=== PATIENT | female | born 1945 | race Caucasian/White ===

== ENCOUNTER → 2016-08-07 | Outpatient (CLI) | payer MEDICARE ==
--- NOTE | 2016-08-09 10:27 | MM ---
Reason for exam: screening (asymptomatic). Last mammogram was performed 1 year and 1 month ago. History: Patient is postmenopausal. Stereotactic core biopsy, January 16, 2002. Cyst aspiration of the left breast. Cyst aspiration of the right breast. Took estrogen for 21 years beginning at age 39. Physical Findings: A clinical breast exam by your physician is recommended on an annual basis and results should be correlated with mammographic findings. MG Screening Mammo w CAD Bilateral CC and MLO view(s) were taken. Prior study comparison: July 09, 2015, bilateral MG screening mammo w CAD. December 08, 2013, bilateral MG screening mammo w CAD. December 05, 2012, CAD bilateral diagnostic mammogram. The breast tissue is heterogeneously dense. This may lower the sensitivity of mammography. Asymmetric density lateral anterior right breast appears more defined from priors. ASSESSMENT: Incomplete: need additional imaging evaluation, BI-RAD 0 RECOMMENDATION: Special view mammogram of the right breast. If lesion persists on supplemental views, image directed ultrasound is recommended. [facility] will attempt to contact patient to return for supplemental views and ultrasound if indicated.
== END | disposition home or self-care (01) ==
LOC: RADMAMWWP 14:53
PROVIDERS: ATTEND Internal Medicine Hematology & Oncology
DX: Z12.31 Encounter for screening mammogram for malignant neoplasm of breast (principal); R92.2 Inconclusive mammogram

== ENCOUNTER → 2016-08-11 | Outpatient (CLI) | payer MEDICARE ==
--- NOTE | 2016-08-15 12:53 | MM ---
Reason for exam: additional evaluation requested from abnormal screening. Last mammogram was performed 1 year and 1 month ago. History: Patient is postmenopausal. Stereotactic core biopsy, January 16, 2002. Cyst aspiration of the left breast. Cyst aspiration of the right breast. Took estrogen for 21 years beginning at age 39. Physical Findings: Nurse did not find any significant physical abnormalities on exam. MG Work Up Mamm w CAD RT CC, MLO, ML, CCRM, and spot compression CC view(s) were taken of the right breast. Prior study comparison: August 07, 2016, bilateral MG screening mammo w CAD. July 09, 2015, bilateral MG screening mammo w CAD. December 08, 2013, bilateral MG screening mammo w CAD. The breast tissue is heterogeneously dense. This may lower the sensitivity of mammography. Asymmetric density anteriorly and laterally does not persist on additional views. Given appearance on screening, a precautionary follow up in 6 months is recommended. These results were verbally communicated with the patient and result sheet given to the patient on 08/11/16. ASSESSMENT: Probably benign, BI-RAD 3 RECOMMENDATION: Follow-up diagnostic mammogram of the right breast in 6 months.
== END | disposition home or self-care (01) ==
LOC: RADMAMWWP 10:59
PROVIDERS: ATTEND Internal Medicine Hematology & Oncology
DX: R92.8 Other abnormal and inconclusive findings on diagnostic imaging of breast (principal)

== ENCOUNTER → 2017-08-17 | Outpatient (CLI) | payer MEDICARE ==
--- NOTE | 2017-08-17 11:22 | MM ---
Reason for exam: additional evaluation requested from abnormal screening. Last mammogram was performed 1 year ago. History: Patient is postmenopausal. Stereotactic core biopsy, January 16, 2002. Cyst aspiration of the left breast. Cyst aspiration of the right breast. Took estrogen for 21 years beginning at age 39. Physical Findings: Nurse did not find any significant physical abnormalities on exam. MG Diagnostic Mammo w CAD ULISES Bilateral CC and MLO view(s) were taken. Prior study comparison: August 11, 2016, right breast MG work up mamm w CAD RT. August 07, 2016, bilateral MG screening mammo w CAD. Finding: There are typically benign vascular, round calcifications in both breasts. There is no discrete abnormality. These results were verbally communicated with the patient and result sheet given to the patient on 08/17/17. ASSESSMENT: Benign, BI-RAD 2 RECOMMENDATION: Routine screening mammogram of both breasts in 1 year.
== END | disposition home or self-care (01) ==
LOC: RADMAMWWP 10:20
PROVIDERS: ATTEND Internal Medicine Hematology & Oncology
DX: R92.8 Other abnormal and inconclusive findings on diagnostic imaging of breast (principal)
CPT/HCPCS: 77066

== ENCOUNTER → 2018-07-23 | Outpatient (CLI) | payer MEDICARE ==
--- NOTE | 2018-07-23 15:12 | BD ---
EXAMINATION TYPE: Axial Bone Density DATE OF EXAM: 07/23/2018 COMPARISON: 01/18/16 CLINICAL HISTORY: Height: 62 IN Weight: 137 LBS RISK FACTORS HISTORY OF: Active: YES Diet low in dairy products/other sources of calcium: YES Postmenopausal woman: AGE 43 Take estrogen and/or progesterone medications: NOT NOW How long: AGE 45-50 MEDICATIONS: Thyroid Medications: YES Which medication: Levothyroxine How Lon YEARS Osteoporosis Medications: NOT NOW Which medication: Boniva How Lon-65 Additional Medications: LEVOTHYROXINE, BLOOD PRESSURE, CHOLESTEROL MED EXAM MEASUREMENTS: Bone mineral densitometry was performed using the Dormir System. Bone mineral density as measured about the Lumbar spine is: ----- L1-L4(G/cm2): 1.188 T Score Values are as follows: ----- L2: -0.4 ----- L3: 0.8 ----- L4: 0.1 ----- L1-L4: 0.1 Bone mineral density has: Increased 9.2% since study of: 01/18/2016 Bone mineral density about the R hip (g/cm2): 0.808 Bone mineral density about the L hip (g/cm2): 0.796 T Score values are as follows: -----R Neck: -1.7 -----L Neck: -1.7 -----R Total: -0.8 -----L Total: -0.8 Bone mineral density has: Increased 0.9% since study of: 01/18/2016 IMPRESSION: Osteopenia (T Score between -2.5 and -1). There is slightly increased risk of fracture and the patient may be considered for treatment. Re-Screen 2-5 years. NOTE: T-SCORE=SD OF THE YOUNG ADULT MEAN.
== END | disposition home or self-care (01) ==
LOC: RADBDWWP 14:02
PROVIDERS: ATTEND Internal Medicine Hematology & Oncology
DX: M85.851 Other specified disorders of bone density and structure, right thigh (principal); M85.852 Other specified disorders of bone density and structure, left thigh; Z78.0 Asymptomatic menopausal state
CPT/HCPCS: 77080

== ENCOUNTER → 2018-08-21 | Outpatient (CLI) | payer MEDICARE ==
--- NOTE | 2018-08-23 14:01 | MM ---
Reason for exam: screening (asymptomatic). Last mammogram was performed 1 year ago. History: Patient is postmenopausal. Stereotactic core biopsy, January 16, 2002. Cyst aspiration of the left breast. Cyst aspiration of the right breast. Took estrogen for 21 years beginning at age 39. Physical Findings: A clinical breast exam by your physician is recommended on an annual basis and results should be correlated with mammographic findings. MG Screening Mammo w CAD Bilateral CC and MLO view(s) were taken. XCCL view(s) were taken of the right breast. Prior study comparison: August 17, 2017, bilateral MG diagnostic mammo w CAD ULISES. August 11, 2016, right breast MG work up mamm w CAD RT. The breast tissue is heterogeneously dense. This may lower the sensitivity of mammography. No significant changes when compared with prior studies. ASSESSMENT: Benign, BI-RAD 2 RECOMMENDATION: Routine screening mammogram of both breasts in 1 year.
== END | disposition home or self-care (01) ==
LOC: RADMAMWWP 11:04
PROVIDERS: ATTEND Internal Medicine Hematology & Oncology
DX: Z12.31 Encounter for screening mammogram for malignant neoplasm of breast (principal)
CPT/HCPCS: 77067

== ENCOUNTER → 2019-08-22 | Outpatient (CLI) | payer MEDICARE ==
--- NOTE | 2019-08-22 08:52 | US ---
EXAMINATION TYPE: US abdomen complete DATE OF EXAM: 08/22/2019 COMPARISON: CT abdomen and pelvis October 06, 2013. CLINICAL HISTORY: R14.0 ABD DISTENTION R10.84 Abdomi nal Pain. EXAM MEASUREMENTS: Liver Length: 12.7 cm Gallbladder Wall: 0.2 cm CBD: 0.4 cm Spleen: 8.2 cm Right Kidney: 8.9 x 3.8 x 5.1 cm Left Kidney: 8.9 x 4.8 x 5.4 cm Pancreas: visualized portions wnl Liver: wnl Gallbladder: No stones seen Evidence for sonographic Tran's sign: Yes CBD: wnl Spleen: wnl Right Kidney: No hydronephrosis or masses seen Left Kidney: No hydronephrosis or masses seen Upper IVC: wnl Abd Aorta: wnl The visualized liver is slightly heterogeneous without mass.. The intrahepatic portion of the IVC an d visualized abdominal aorta true bifurcation are within normal limits. There is no evidence of chol elithiasis. Common bile duct is unremarkable. The visualized portions of the pancreas are homogenou s. The spleen redemonstrated scattered tiny calcific foci presumed product of old granulomatous dise ase. Kidneys are symmetric and free of hydronephrosis. No renal lesions are seen. IMPRESSION: No ascites. Positive sonographic Tran's sign without gallstones of uncertain reason. Ev idence of old granulomatous disease. No acute findings evident.
== END | disposition home or self-care (01) ==
LOC: RADUSWWP 08:08
PROVIDERS: ATTEND Internal Medicine Hematology & Oncology
DX: R10.84 Generalized abdominal pain (principal); Z91.018 Allergy to other foods
CPT/HCPCS: 76700

== ENCOUNTER → 2019-08-26 | Outpatient (CLI) | payer MEDICARE ==
--- NOTE | 2019-08-27 07:27 | CT ---
EXAMINATION TYPE: CT abdomen w con DATE OF EXAM: 08/26/2019 COMPARISON: Ultrasound 08/22/2019, CT scan 10/06/2013 HISTORY: Upper Abdominal pain with nausea. CT DLP: 392.1 mGycm Automated exposure control for dose reduction was used. TECHNIQUE: Helical acquisition of images was performed from the lung bases through the top of iliac crest to include entire abdomen. CONTRAST: Performed with Oral Contrast and with IV Contrast, patient injected with 100 mL of Isovue 300. FINDINGS: LUNG BASES: Calcified granuloma left lung base and there is interlobular septal thickening correlate for chronic interstitial mild lung disease. Correlate for COPD. LIVER/GB: Hepatic tiny granuloma noted. No obvious gallstones. PANCREAS: No significant abnormality is seen. SPLEEN: Splenic granuloma noted. ADRENALS: No significant abnormality is seen. KIDNEYS: No significant abnormality is seen. BOWEL: Retained fecal debris throughout the visualized portion of the colon demonstrated within CT a bdomen. Mild thickening the gastric antrum could related to incomplete distention rather than gastrit is correlate clinically. Small hiatal hernia noted. LYMPH NODES: No significant abnormality is seen. OSSEOUS STRUCTURES: Hypertrophic and degenerative change spine. OTHER: Atherosclerotic change of the aorta with no evidence of aneurysm. IMPRESSION: 1 MILD WALL THICKENING OF THE GASTRIC ANTRUM. THIS COULD BE RELATED TO INCOMPLETE DISTENTION CORRELAT E CLINICALLY TO EXCLUDE MILD GASTRITIS. 2. GRANULOMATOUS DISEASE WITH FINDINGS SUGGESTIVE OF MILD CHRONIC INTERSTITIAL LUNG DISEASE AT THE [facility] BASES ARE 3. SMALL HIATAL HERNIA
== END | disposition home or self-care (01) ==
LOC: RADCTMAIN 15:07
PROVIDERS: ATTEND Internal Medicine Hematology & Oncology
DX: K31.89 Other diseases of stomach and duodenum (principal); D71 Functional disorders of polymorphonuclear neutrophils; K44.9 Diaphragmatic hernia without obstruction or gangrene; Z91.018 Allergy to other foods
CPT/HCPCS: 82565; 84520; 74160; 36415; Q9967

== ENCOUNTER → 2019-09-02 | Outpatient (CLI) | payer MEDICARE | END | disposition home or self-care (01) | LOC: LABWHC1 09:59 | PROVIDERS: ATTEND Surgery | DX: U07.1 COVID-19 (principal) ==

== ENCOUNTER → 2019-09-04 | Day surgery (SDC) | payer MEDICARE ==
[2019-09-03 09:32] VITALS: BMI 24.7
[~2019-09-04] MED LIST: LACTATED RINGERS 1,000 ML IV SCH; LIDOCAINE 1% (10MG/ML) FOR IV START INTRADERMA PRN; PROPOFOL 10 MG/ML 20 ML VIAL IV ONE
[2019-09-04 12:26] VITALS: RESP 16
--- NOTE | 2019-09-04 13:26 | P.OP ---
Date of Procedure: 09/04/19 Preoperative Diagnosis: GERD Postoperative Diagnosis: Gastritis Duodenitis Hiatal hernia Procedure(s) Performed: Esophagogastroduodenoscopy with biopsy Surgeon: Beverly Barragan Pathology: other (Biopsies of duodenum, antrum, esophagus) Condition: stable Disposition: same day Indications for Procedure: 74-year-old female presented with complaints of reflux and bloating. She has never had an upper endoscopy. Upper endoscopy is planned to be performed for further evaluation. She is excellent the risks, benefits and alternatives of the procedure and did provide consent prior to attending the endoscopy suite. Operative Findings: Inflammatory changes of the antrum and duodenum Description of Procedure: The patient was brought to the endoscopy suite. She was then placed in left lateral decubitus position and adequate sedation was achieved using conscious sedation. A bite block was placed and an endoscope was placed in the oropharynx and advanced under endoscopic visualization. The endoscope was advanced through esophagus into the stomach, through the gastric antrum and into the pylorus. The third portion of the duodenum was visualized. The endoscope was then slowly withdrawn. The first portion of the duodenum was noted to have inflammatory changes. Biopsies were taken. The antrum was noted to have inflammatory changes. Biopsies were taken. The gastric body distended normally and the gastric folds appear normal and flattened with insufflation. A retroflexed view of the fundus and GE junction revealed a moderate size hiatal hernia. The esophagus appeared endoscopically normal. Biopsies were taken. Excess air was removed and the scope was withdrawn and the procedure was completed.
[2019-09-04 13:42] VITALS: BP 162/88; PULSE 85
== END | disposition home or self-care (01) ==
LOC: ORWHC2ENDO 11:54
PROVIDERS: ATTEND Surgery
DX: K21.0 Gastro-esophageal reflux disease with esophagitis (principal); K29.50 Unspecified chronic gastritis without bleeding; K29.80 Duodenitis without bleeding; K44.9 Diaphragmatic hernia without obstruction or gangrene; J84.10 Pulmonary fibrosis, unspecified; K64.9 Unspecified hemorrhoids; I10 Essential (primary) hypertension; E78.00 Pure hypercholesterolemia, unspecified; E07.9 Disorder of thyroid, unspecified; E78.5 Hyperlipidemia, unspecified; Z98.890 Other specified postprocedural states; Z87.891 Personal history of nicotine dependence; Z79.899 Other long term (current) drug therapy; Z79.890 Hormone replacement therapy; Z82.0 Family history of epilepsy and other diseases of the nervous system; Z82.49 Family history of ischemic heart disease and other diseases of the circulatory system
CPT/HCPCS: 88305; 43239; J2704

== ENCOUNTER → 2020-01-19 | Outpatient (CLI) | payer MEDICARE ==
--- NOTE | 2020-01-21 10:43 | MM ---
Reason for exam: screening (asymptomatic). Last mammogram was performed 1 year and 5 months ago. History: Patient is postmenopausal. Stereotactic core biopsy, January 16, 2002. Cyst aspiration of the left breast. Cyst aspiration of the right breast. Took estrogen for 21 years beginning at age 39. Physical Findings: A clinical breast exam by your physician is recommended on an annual basis and results should be correlated with mammographic findings. MG 3D Screening Mammo W/Cad Bilateral CC and MLO view(s) were taken. Prior study comparison: August 21, 2018, bilateral MG screening mammo w CAD. August 17, 2017, bilateral MG diagnostic mammo w CAD ULISES. The breast tissue is heterogeneously dense. This may lower the sensitivity of mammography. Benign appearing bilateral calcifications. No significant changes when compared with prior studies. ASSESSMENT: Benign, BI-RAD 2 RECOMMENDATION: Routine screening mammogram of both breasts in 1 year.
== END | disposition home or self-care (01) ==
LOC: RADMAMWWP 07:15
PROVIDERS: ATTEND Internal Medicine Hematology & Oncology
DX: Z12.31 Encounter for screening mammogram for malignant neoplasm of breast (principal)
CPT/HCPCS: 77063; 77067

== ENCOUNTER 2020-01-22 10:13 | Day surgery (SDC) | payer MEDICARE ==
[2020-01-20 14:42] VITALS: BMI 23.9
[~2020-01-22 10:13] MED LIST changes: -PROPOFOL 10 MG/ML 20 ML VIAL IV ONE
[2020-01-22] MEDS ORDERED: LACTATED RINGERS 1,000 ML IV ONE (11:05)
[2020-01-22 11:11] VITALS: RESP 16; TEMP 96.8
[2020-01-22] MEDS ORDERED: PROPOFOL 10 MG/ML 20 ML VIAL IV ONE (11:23)
[2020-01-22] MEDS ORDERED: GLYCOPYRROLATE 0.2 MG/ML 2 ML VIAL ONE (11:23)
[2020-01-22] MEDS ORDERED: fentaNYL (PF) 50 MCG/ML 2 ML AMP ONE (11:23)
[2020-01-22] MEDS ORDERED: MIDAZOLAM 2 MG/2 ML VIAL ONE (11:23)
[2020-01-22] MEDS ORDERED: LIDOCAINE 1% INJ 10MG/ML (20 ML MDV) ONE (11:23)
--- NOTE | 2020-01-22 12:09 | P.PCN ---
Date of Procedure: 01/22/20 Description of Procedure: BRIEF HISTORY: Patient is a 74-year-old female presenting to the hospital for outpatient colonoscopy for evaluation of right upper quadrant abdominal pain and screening for malignant neoplasm of the colon. Patient reports last colonoscopy 15 years ago. She reports significant abdominal pain and distention. PROCEDURE PERFORMED: Colonoscopy with polypectomy. PREOPERATIVE DIAGNOSIS: Right upper quadrant abdominal pain, abdominal pain, screening for malignant neoplasm of the colon, last colonoscopy 15 years ago. ESTIMATED BLOOD LOSS: Minimal. IV sedation per Anesthesia. PROCEDURE: After informed consent was obtained, the patient, was brought into the endoscopy unit. IV sedation was administered by Anesthesia under continuous monitoring. Digital rectal examination was normal. Initially the Olympus CF-190 flexible video colonoscope was then inserted in the rectum, gradually advanced into the cecum without any difficulty. Careful examination was performed as the scope was gradually being withdrawn. Ileocecal valve and the appendiceal orifice were visualized and appeared normal. Prep was excellent. Mucosa of the cecum, ascending colon, transverse colon, descending colon, sigmoid colon, and rectum appeared normal. 2 diminutive polyps measuring 2 and 3 mm in size removed from the transverse colon with cold snare polypectomy. 2 diminutive polyps measuring 3 mm in size removed from the sigmoid colon with cold snare polypectomy. I nternal hemorrhoids noted. Retroflexion was performed in the rectum and no lesions were seen. The patient tolerated the procedure well. IMPRESSION: 4 diminutive polyps removed with cold snare, 2 from the transverse colon and 2 from the sigmoid colon. Internal hemorrhoids. RECOMMENDATIONS: Findings of this examination were discussed with the patient and her . Okay to resume diet. Okay to resume medications. Await pathology from polypectomies. It would recommend repeat colonoscopy in 5 years for colon polyps pending pathology from polypectomies. Patient has been informed that the patient should try a FODMAP diet to help with symptoms of abdominal bloating and gas.
[2020-01-22 12:44] VITALS: BP 160/91; PULSE 75
== END 2020-01-22 13:15 | disposition home or self-care (01) ==
LOC: ORWHC2ENDO 10:13
PROVIDERS: ATTEND Internal Medicine
DX: K63.5 Polyp of colon (principal); K64.8 Other hemorrhoids; R10.11 Right upper quadrant pain; R14.0 Abdominal distension (gaseous); I10 Essential (primary) hypertension; E78.5 Hyperlipidemia, unspecified; E07.9 Disorder of thyroid, unspecified; F32.9 Major depressive disorder, single episode, unspecified; K21.9 Gastro-esophageal reflux disease without esophagitis; Z87.891 Personal history of nicotine dependence; Z79.899 Other long term (current) drug therapy; Z79.890 Hormone replacement therapy; Z98.890 Other specified postprocedural states; Z87.19 Personal history of other diseases of the digestive system
CPT/HCPCS: 88305; 45385; J2250; J2001; J3010; J2704

== ENCOUNTER → 2020-08-05 | Outpatient (CLI) | payer MEDICARE ==
--- NOTE | 2020-08-05 15:43 | CT ---
EXAMINATION TYPE: CT abdomen pelvis w con DATE OF EXAM: 08/05/2020 COMPARISON: 08/26/2019 HISTORY: Lower abdominal pain and distention. CT DLP: 1014 mGycm CONTRAST: CT scan of the abdomen and pelvis is performed with Oral Contrast and with IV Contrast, patient injec cedric with 80ml mL of Isovue 300. FINDINGS: LUNG BASES-: No visible nodule. No infiltrate. LIVER/GB: No calcified gallstones. No space occupying hepatic lesion. Biliary tree is of normal ca liber. PANCREAS: No inflammation. No distinct mass. SPLEEN: No splenic enlargement. No lesion seen. Calcified granulomas of the spleen. ADRENALS: No nodule. No thickening. KIDNEYS/BLADDER: No hydronephrosis. No nephrolithiasis. No distinct renal mass. Urinary bladder g rossly unremarkable. BOWEL: Normal appendix. There is distention of the stomach wall thickening at the pylorus. Consider d irect visualization or upper GI. Normal bowel caliber. No inflammation. GENITAL ORGANS: No gross abnormality. LYMPH NODES: No greater than 1cm abdominal or pelvic lymph nodes are appreciated. AORTA: No significant abnormality. OSSEOUS STRUCTURES: No significant abnormality is seen. OTHER: No significant additional abnormality is seen. IMPRESSION: 1. There is distention of the stomach wall thickening at the pylorus. Consider direct visualization o r upper GI.
== END | disposition home or self-care (01) ==
LOC: RADCTMAIN 13:27
PROVIDERS: ATTEND Internal Medicine Hematology & Oncology
DX: R14.0 Abdominal distension (gaseous) (principal)
CPT/HCPCS: 82565; 84520; 74177; 36415; Q9967

== ENCOUNTER → 2020-09-03 | Outpatient (CLI) | payer MEDICARE ==
--- NOTE | 2020-09-04 08:20 | MR ---
EXAMINATION TYPE: MR MRCP DATE OF EXAM: 09/03/2020 COMPARISON: CT abdomen and pelvis August 05, 2020 and older CTs 2019 and 2013. Ultrasound abdomen August HISTORY: Extreme Pain and bloating for 3 weeks. Pyloric stenosis. Standard multiplanar, multisequence MRI departmental protocol Multiplanar, multisequence images of the abdomen were acquired. Diffusion weighted imaging was perfor med. Thin and thick slice MRCP imaging was performed on MRI scanner. FINDINGS: Liver/gallbladder/pancreas/biliary system: No intraluminal gallstones. Liver remains normal in size w ithout solid or cystic mass. Pancreas also remains normal in size without solid or cystic mass. MRCP imaging shows common bile duct measured up to 7 mm which is upper limits of normal for patient of thi s age. No suspicious intrahepatic or extrahepatic biliary dilatation. Gradual tapering towards the du odenal ampulla is identified. Pancreatic duct not well seen due to no significant dilatation. Other: Spleen and both adrenal glands appear within normal limits. No concerning renal mass or hydron ephrosis. Lung bases grossly clear. No suspicious small or large bowel dilatation. Stomach less well- distended on current study makes evaluation suboptimal. No intra-abdominal ascites or greater than 1 cm abdominal adenopathy. Slight scoliotic curvature on coronal images with multilevel spurring is red emonstrated. IMPRESSION: No biliary or pancreatic ductal dilatation.
== END | disposition home or self-care (01) ==
LOC: RADMRIMAIN 11:04
PROVIDERS: ATTEND Internal Medicine Hematology & Oncology
DX: K31.1 Adult hypertrophic pyloric stenosis (principal)
CPT/HCPCS: 74181

== ENCOUNTER 2020-09-14 10:07 | Day surgery (SDC) | payer MEDICARE ==
[2020-09-09 15:03] VITALS: BMI 24.7
[~2020-09-14 10:07] MED LIST changes: -LIDOCAINE 1% (10MG/ML) FOR IV START INTRADERMA PRN
[2020-09-14 10:45] VITALS: RESP 16; TEMP 98.4
[2020-09-14] MEDS ORDERED: PROPOFOL 10 MG/ML 20 ML VIAL IV ONE (11:07)
[2020-09-14] MEDS ORDERED: LIDOCAINE 1% INJ 10MG/ML (20 ML MDV) ONE (11:07)
--- NOTE | 2020-09-14 11:08 | P.GSHP ---
History of Present Illness H&P Date: 09/14/20 Chief Complaint: Abdominal pain Abdominal pain patient here today for upper endoscopy. Had a recent CAT scan showing gastric wall thickening. Patient with history of chronic abdominal pain both upper abdomen and lower abdomen. She had a recent MRCP which was normal. Past Medical History Past Medical History: GERD/Reflux, Hyperlipidemia, Hypertension, Thyroid Disorder Additional Past Medical History / Comment(s): having extreme stomach bloating History of Any Multi-Drug Resistant Organisms: None Reported Additional Past Surgical History / Comment(s): COLONOSCOPIES, HEMORRHOIDECTOMY,. EGD Past Anesthesia/Blood Transfusion Reactions: No Reported Reaction Smoking Status: Former smoker - Past Family History Mother Family Medical History: No Reported History Medications and Allergies Home Medications Medication Instructions Recorded Confirmed Type Levothyroxine Sodium [Synthroid] 100 mcg PO QAM 10/16/13 09/09/20 History Lansoprazole [Prevacid] 30 mg PO DAILY 10/17/13 09/14/20 History DULoxetine HCL [Cymbalta] 20 mg PO DAILY 09/03/19 09/14/20 History Rosuvastatin Calcium [Crestor] 5 mg PO DAILY 09/03/19 09/09/20 History Zolpidem [Ambien] 10 mg PO HS PRN 09/03/19 09/09/20 History lisinopriL [Zestril] 20 mg PO QAM 09/03/19 09/09/20 History Allergies Allergy/AdvReac Type Severity Reaction Status Date / Time No Known Allergies Allergy Verified 09/09/20 14:58 Surgical - Exam Vital Signs Temp Pulse Resp BP Pulse Ox 98.4 F 68 16 179/89 95 09/14/20 10:43 09/14/20 10:43 09/14/20 10:43 09/14/20 10:43 09/14/20 10:43 Physical exam: General: Well-developed, well-nourished HEENT: Normocephalic, sclerae nonicteric Abdomen: Nontender, nondistended Extremities: No edema Neuro: Alert and oriented Assessment and Plan (1) Abdominal pain Narrative/Plan: Will proceed with upper endoscopy Current Visit: No Status: Acute Code(s): R10.9 - UNSPECIFIED ABDOMINAL PAIN SNOMED Code(s): 39311435
--- NOTE | 2020-09-14 11:19 | P.PCN ---
Date of Procedure: 09/14/20 Procedure(s) Performed: Preoperative Dx: GERD, presurgical Postoperative Dx: Gastritis, small gastric polyps, hiatal hernia Procedure: EGD with Bx Anesthesia: Sedation Endoscopist: Dr. Seivlla Specimens: Antrum, body, polyp Endoscopic Procedure: The patient was on the endoscopy table in the left decubitus position. The Olympus gastroscope was inserted into the oropharynx and passed under direct visualization to the region of the third portion of the duodenum. From that point the scope was slowly withdrawn inspecting all surfaces carefully. There were no neoplastic inflammatory or polypoid lesions throughout the duodenum. The pylorus was widely patent. The stomach was carefully inspected. There was diffuse gastritis present. A biopsy of the antrum took place to rule out H. pylori. Biopsies of the body of the stomach to place as well. The largest polyp measuring 6 mm was removed using the cold biopsy forceps. Retroflexion revealed a small hiatal hernia. The esophagus was then carefully examined. There were no neoplastic inflammatory or polypoid lesions throughout the visualized esophagus. The patient was then taken to the recovery room in stable condition per anesthesia guidelines. Recommendations: Await biopsy results.
[2020-09-14 11:26] VITALS: BP 162/94; PULSE 81
== END 2020-09-14 12:10 | disposition home or self-care (01) ==
LOC: ORWHC2ENDO 10:07
PROVIDERS: ATTEND Surgery
DX: K29.50 Unspecified chronic gastritis without bleeding (principal); K44.9 Diaphragmatic hernia without obstruction or gangrene; K21.9 Gastro-esophageal reflux disease without esophagitis; K31.7 Polyp of stomach and duodenum; I10 Essential (primary) hypertension; E78.5 Hyperlipidemia, unspecified; E07.9 Disorder of thyroid, unspecified; J84.10 Pulmonary fibrosis, unspecified; F32.9 Major depressive disorder, single episode, unspecified; K64.9 Unspecified hemorrhoids; Z98.890 Other specified postprocedural states; Z87.891 Personal history of nicotine dependence; Z79.890 Hormone replacement therapy; Z79.899 Other long term (current) drug therapy
CPT/HCPCS: 88305; 43239; J2001; J2704

== ENCOUNTER → 2021-07-14 | Outpatient (CLI) | payer MEDICARE ==
--- NOTE | 2021-07-15 11:56 | MM ---
Reason for exam: screening (asymptomatic). Last mammogram was performed 1 year and 6 months ago. History: Patient is postmenopausal. Stereotactic core biopsy, January 16, 2002. Cyst aspiration of the left breast. Cyst aspiration of the right breast. Took estrogen for 21 years beginning at age 39. Physical Findings: A clinical breast exam by your physician is recommended on an annual basis and results should be correlated with mammographic findings. MG 3D Screening Mammo W/Cad Bilateral CC and MLO view(s) were taken. Prior study comparison: January 19, 2020, bilateral MG 3d screening mammo w/cad. August 21, 2018, bilateral MG screening mammo w CAD. The breast tissue is extremely dense which could obscure a lesion on mammography. There is no discrete abnormality. ASSESSMENT: Negative, BI-RAD 1 RECOMMENDATION: Routine screening mammogram of both breasts in 1 year.
== END | disposition home or self-care (01) ==
LOC: RADMAMWWP 12:59
PROVIDERS: ATTEND Internal Medicine Hematology & Oncology
DX: Z12.31 Encounter for screening mammogram for malignant neoplasm of breast (principal); Z78.0 Asymptomatic menopausal state
CPT/HCPCS: 77063; 77067

== ENCOUNTER → 2021-10-17 | Outpatient (CLI) | payer MEDICARE ==
--- NOTE | 2021-10-17 17:22 | NM ---
EXAMINATION TYPE: NM gastric emptying static DATE OF EXAM: 10/17/2021 COMPARISON: NONE HISTORY: 76-year-old female R14.0, generalized bloating. TECHNIQUE: Following administration of 2.1 mCi Tc 99m Sulfur Colloid with 4 OUNCES EGG WHITES, 2 PIEC ES OF TOAST W/BUTTER & JAM AND 4 OUNCES WATER, projection images of the abdomen were obtained 10 ariadna nancy post ingestion. FINDINGS: Patient Emptying Values 1 Hour 38 % (70-10%) 2 Hours 66 % (> 40%) 3 Hours 95 % (> 70%) 4 Hours 99 % (> 90%) Gastroesophagel reflux: None T 1/2 is calculated at 81 minutes (normal range for solid phase 60-105 minutes). IMPRESSION: Normal gastric emptying values. The measurements argue against gastroparesis
== END | disposition home or self-care (01) ==
LOC: RADNMMAIN 06:33
PROVIDERS: ATTEND Internal Medicine Gastroenterology
DX: R14.0 Abdominal distension (gaseous) (principal); R14.3 Flatulence
CPT/HCPCS: 78264; A9541

== ENCOUNTER → 2022-08-28 | Outpatient (CLI) | payer MEDICARE ==
--- NOTE | 2022-08-29 17:13 | MM ---
Reason for Exam: Screening (asymptomatic). Last mammogram was performed 1 year(s) and 2 month(s) ago. Patient History: Menarche at age 9. First Full-Term at age 16. Postmenopausal. Estrogen for 21 years from age 39 until age 60. Cyst Aspiration on the Right side. Cyst Aspiration on the Left side. 01/16/2002, Stereotactic Core Biopsy. Mother had ovarian cancer, age 52. Risk Values: Dorcas 5 year model risk: 1.6%. NCI Lifetime model risk: 2.6%. Prior Study Comparison: 08/21/2018 Bilateral Screening Mammogram, [facility]. 01/19/2020 Bilateral Screening Mammogram, [facility]. 07/14/2021 Bilateral Screening Mammogram, [facility]. Tissue Density: The breast tissue is heterogeneously dense. This may lower the sensitivity of mammography. Findings: Analyzed By CAD. There is no suspicious group of microcalcifications or new suspicious mass in either breast. Overall Assessment: Benign, BI-RAD 2 Management: Screening Mammogram of both breasts in 1 year. . Patient should continue monthly self-breast exams. A clinical breast exam by your physician is recommended on an annual basis. This exam should not preclude additional follow-up of suspicious palpable abnormalities. Note on Dorcas scores and lifetime risk: 1. A Dorcas score greater than 3% is considered moderate risk. If this is the case, consider specialist referral to assess eligibility for a risk reducing agent. 2. If overall lifetime risk for the development of breast cancer is 20% or higher, the patient may qualify for future screening with alternating mammogram and breast MRI. Electronically signed and approved by: Julián Alvarez M.D. Radiologist
== END | disposition home or self-care (01) ==
LOC: RADMAMWWP 14:42
PROVIDERS: ATTEND Internal Medicine Hematology & Oncology
DX: Z12.31 Encounter for screening mammogram for malignant neoplasm of breast (principal); I10 Essential (primary) hypertension; E78.5 Hyperlipidemia, unspecified; M81.8 Other osteoporosis without current pathological fracture; R55 Syncope and collapse; Z78.0 Asymptomatic menopausal state; Z80.41 Family history of malignant neoplasm of ovary
CPT/HCPCS: 77063; 77067

== ENCOUNTER → 2023-08-30 | Outpatient (CLI) | payer MEDICARE ==
--- NOTE | 2023-09-03 23:03 | MM ---
Reason for Exam: Screening (asymptomatic). Last screening mammogram was performed 12 month(s) ago. Patient History: Menarche at age 9. First Full-Term at age 16. Postmenopausal. Estrogen for 21 years from age 39 until age 60. Cyst Aspiration on the Right side. Cyst Aspiration on the Left side. 01/16/2002, Stereotactic Core Biopsy. Mother had ovarian cancer, age 52. Risk Values: Dorcas 5 year model risk: 1.5%. NCI Lifetime model risk: 2.4%. Prior Study Comparison: 01/19/2020 Bilateral Screening Mammogram, [facility]. 07/14/2021 Bilateral Screening Mammogram, [facility]. 08/28/2022 Bilateral MG 3D screening mammo w/cad, [facility]. Tissue Density: The breasts are heterogeneously dense, which may obscure small masses. Findings: Analyzed By CAD. The pattern is symmetrical. Benign vascular calcifications present bilaterally. No suspicious groups of microcalcifications, spiculated or lobular masses, architectural distortion or other secondary signs of malignancy are mammographically apparent. Overall Assessment: Benign, BI-RAD 2 Management: Screening Mammogram of both breasts in 1 year. A negative mammogram report should not preclude additional follow up of suspicious palpable abnormalities. Patient should continue monthly self breast exam. A clinical breast exam by your physician is recommended on an annual basis and results should be correlated with mammographic findings. Note on Dorcas scores and lifetime risk: 1. A Dorcas score greater than 3% is considered moderate risk. If this is the case, consider specialist referral to assess eligibility for a risk reducing agent. 2. If overall lifetime risk for the development of breast cancer is 20% or higher, the patient may qualify for future screening with alternating mammogram and breast MRI. Electronically signed and approved by: Kike Felder D.O. Radiologis
== END | disposition home or self-care (01) ==
LOC: RADMAMWWP 13:56
PROVIDERS: ATTEND Internal Medicine Hematology & Oncology
DX: Z12.31 Encounter for screening mammogram for malignant neoplasm of breast (principal); Z78.0 Asymptomatic menopausal state
CPT/HCPCS: 77063; 77067

== ENCOUNTER 2024-01-18 09:04 | Emergency (ER) | payer MEDICARE ==
[2024-01-18 09:16] VITALS: RESP 17; TEMP 97.5
--- NOTE | 2024-01-18 09:30 | ED ---
GI Bleed HPI - General Chief complaint: GI Bleed Stated complaint: GI bleed Time Seen by Provider: 01/18/24 09:09 Source: patient, EMS, RN notes reviewed Mode of arrival: EMS Limitations: no limitations - History of Present Illness Initial comments: This is an 78-year-old female who presents to the emergency department for rectal bleeding and abdominal pain. Patient states that yesterday she started to notice bright red rectal bleeding. States that this was not mixed in with stool, it was only blood. This is associated with pain in the left lower quadrant. Not taking any blood thinners. Believes that she has a history of diverticulosis, but has never experienced rectal bleeding. Reports associated nausea but no vomiting. The abdominal pain got worse throughout the night and this morning she started feeling very weak and dizzy, prompting her to call EMS. - Related Data Home Medications Medication Instructions Recorded Confirmed Levothyroxine Sodium [Synthroid] 100 mcg PO QAM 10/16/13 09/09/20 Lansoprazole [Prevacid] 30 mg PO DAILY 10/17/13 09/14/20 DULoxetine HCL [Cymbalta] 20 mg PO DAILY 09/03/19 09/14/20 Rosuvastatin Calcium [Crestor] 5 mg PO DAILY 09/03/19 09/09/20 Zolpidem [Ambien] 10 mg PO HS PRN 09/03/19 09/09/20 lisinopriL [Zestril] 20 mg PO QAM 09/03/19 09/09/20 Previous Rx's Medication Instructions Recorded Amoxic-Pot Clav 875-125Mg 1 tab PO Q12HR 10 Days #20 tab 01/18/24 [Augmentin 875-125] Amoxic-Pot Clav 875-125Mg 1 tab PO Q12HR 10 Days #20 tab 01/18/24 [Augmentin 875-125] Ondansetron Odt [Zofran Odt] 4 mg PO Q8HR PRN #20 tab 01/18/24 Ondansetron Odt [Zofran Odt] 4 mg PO Q8HR PRN #20 tab 01/18/24 Allergies Allergy/AdvReac Type Severity Reaction Status Date / Time No Known Allergies Allergy Verified 01/18/24 09:12 Review of Systems ROS Statement: Those systems with pertinent positive or pertinent negative responses have been documented in the HPI. ROS Other: All systems not noted in ROS Statement are negative. Past Medical History Past Medical History: Hyperlipidemia, Hypertension, Thyroid Disorder Additional Past Medical History / Comment(s): CHRONIC BLOATING ISSUES FOR YEARS, POSSIBLE GLUTEN PROBLEM-NEVER BEEN TESTED FOR CELIAC History of Any Multi-Drug Resistant Organisms: None Reported Additional Past Surgical History / Comment(s): COLONOSCOPIES. HEMORRHOIDECTOMY. EGD Past Anesthesia/Blood Transfusion Reactions: No Reported Reaction Past Psychological History: No Psychological Hx Reported Smoking Status: Former smoker - Past Family History Mother Family Medical History: No Reported History General Exam Limitations: no limitations General appearance: alert, in no apparent distress Head exam: Present: atraumatic, normocephalic, normal inspection Respiratory exam: Present: normal lung sounds bilaterally. Absent: respiratory distress, wheezes, rales, rhonchi, stridor Cardiovascular Exam: Present: regular rate, normal rhythm, normal heart sounds. Absent: systolic murmur, diastolic murmur, rubs, gallop, clicks GI/Abdominal exam: Present: soft, tenderness (LLQ), normal bowel sounds. Absent: distended Neurological exam: Present: alert, oriented X3, CN II-XII intact Psychiatric exam: Present: normal affect, normal mood Skin exam: Present: warm, dry, intact, normal color. Absent: rash Course Vital Signs 01/18/24 01/18/24 09:06 13:06 Temperature 97.5 F L Pulse Rate 84 74 Respiratory 17 17 Rate Blood Pressure 164/83 155/76 O2 Sat by Pulse 97 97 Oximetry Medical Decision Making - Medical Decision Making This is an 78 year old female who presents to the emergency department for abdominal pain and rectal bleeding. Was pt. sent in by a medical professional or institution? @ -No Did you speak to anyone other than the patient for history? @ -No Did you review nursing and triage notes? @ -Yes, and I agree, it is accurate with regards to the patient's symptoms. Were old charts reviewed? @ -No Differential Diagnosis? @ -Differential GI Bleed: Esophageal varices, aortoenteric fistula, Whit-Bernabe, gastritis, peptic ulcer disease, diverticulosis, inflammatory bowel disease, hemorrhoids, fissure, colitis, malignancy, Meckel's diverticulum, this is not meant to be an all- inclusive list. EKG interpreted by me (3pts min.)? @ -Not obtained X-rays interpreted by me (1pt min.)? @ -Not obtained CT interpreted by me (1pt min.)? @ -CTA of the abdomen and pelvis obtained. My interpretation identifies diffuse colonic wall thickening. U/S interpreted by me (1pt. min.)? @ -Not obtained What testing was considered but not performed? (CT, X-rays, U/S, labs)? Why? @ -None What meds were considered but not given? Why? @ -None Did you discuss the management of the patient with other professionals? @ -No Did you reconcile home meds? @ -No Was smoking cessation discussed for >3mins.? @ -No Was critical care preformed (if so, how long)? @ -No Were there social determinants of health that impacted care today? How? (Homelessness, low income, unemployed, alcoholism, drug addiction, transportation, low edu. Level, literacy, decrease access to med. care, halfway, re hab)? @ -No Was there de-escalation of care discussed even if they declined? (Discuss DNR or withdrawal of care, Hospice)? @ -No What co-morbidities impacted this encounter? (DM, HTN, Smoking, COPD, CAD, Cancer, CVA, Hep., AIDS, mental health diagnosis, sleep apnea, morbid obesity)? @ -None Was patient admitted / discharged? @ -Discharged. Lab work demonstrates leukocytosis with a white blood cell count of 11.5. Hemoglobin within normal limits. CTA of the abdomen and pelvis obtained. No active bleeding was identified. She was found to have findings consistent with acute colitis of the descending colon, proximal sigmoid colon, cecum, and ascending colon. Symptoms managed in the emergency department. Patient had no active bleeding and remained hemodynamically stable. Hemoglobin also within normal limits and advised the patient that management can be attempted on an outpatient basis to start. Given the leukocytosis with possibility of infection, prescription for Augmentin was provided. Zofran prescribed for any additional nausea. Advised Tylenol as needed for pain relief as well as bowel rest. Strict return parameters were discussed and she is advised to have close follow-up with her primary care provider. Patient discharged home in stable condition. Case discussed with ED attending Dr. Ashford. Return precautions reviewed in depth, the patient is instructed to return to the emergency department with any new, worsening, or concerning symptoms. Patient verbalized understanding. Undiagnosed new problem with uncertain prognosis? @ -None Drug Therapy requiring intensive monitoring for toxicity (Heparin, Nitro, Insulin, Cardizem)? @ -None Were any procedures done? @ -None Diagnosis/symptom? @ -Colitis, rectal bleeding Acute, or Chronic, or Acute on Chronic? @ -Acute Uncomplicated (without systemic symptoms) or Complicated (systemic symptoms)? @ -Uncomplicated Side effects of treatment? @ -None Exacerbation, Progression, or Severe Exacerbation] @ -Not applicable Poses a threat to life or bodily function? @ -Unlikely - Lab Data Result diagrams: 01/18/24 09:57 01/18/24 09:57 Lab Results 01/18/24 01/18/24 01/18/24 Range/Units 09:40 09:45 09:57 WBC 11.5 H (3.8-10.6) k/uL RBC 4.33 (3.80-5.40) m/uL Hgb 13.6 (11.4-16.0) gm/dL Hct 41.1 (34.0-46.0) % MCV 94.8 (80.0-100.0) fL MCH 31.3 (25.0-35.0) pg MCHC 33.0 (31.0-37.0) g/dL RDW 12.7 (11.5-15.5) % Plt Count 339 (150-450) k/uL MPV 7.2 Neutrophils % 81 % Lymphocytes % 9 % Monocytes % 7 % Eosinophils % 1 % Basophils % 0 % Neutrophils # 9.3 H (1.3-7.7) k/uL Lymphocytes # 1.1 (1.0-4.8) k/uL Monocytes # 0.9 (0-1.0) k/uL Eosinophils # 0.1 (0-0.7) k/uL Basophils # 0.0 (0-0.2) k/uL PT (10.0-12.5) sec INR (<1.2) APTT (22.0-30.0) sec Sodium (137-145) mmol/L Potassium (3.5-5.1) mmol/L Chloride (98-107) mmol/L Carbon Dioxide (22-30) mmol/L Anion Gap mmol/L BUN (7-17) mg/dL Creatinine (0.52-1.04) mg/dL Est GFR (CKD-EPI)AfAm (>60 ml/min/1.73 sqM) Est GFR (CKD-EPI)NonAf (>60 ml/min/1.73 sqM) Glucose (74-99) mg/dL Plasma Lactic Acid Singh (0.7-2.0) mmol/L Calcium (8.4-10.2) mg/dL Magnesium (1.6-2.3) mg/dL Total Bilirubin (0.2-1.3) mg/dL AST (14-36) U/L ALT (4-34) U/L Alkaline Phosphatase (38-126) U/L Total Protein (6.3-8.2) g/dL Albumin (3.5-5.0) g/dL Lipase (23-300) U/L Blood Type O Positive Blood Type Confirm O Positive Blood Type Recheck Bld Type Recheck Status Antibody Screen NEGATIVE Spec Expiration Date 01/18/24 01/18/24 01/18/24 Range/Units 09:57 09:57 09:57 WBC (3.8-10.6) k/uL RBC (3.80-5.40) m/uL Hgb (11.4-16.0) gm/dL Hct (34.0-46.0) % MCV (80.0-100.0) fL MCH (25.0-35.0) pg MCHC (31.0-37.0) g/dL RDW (11.5-15.5) % Plt Count (150-450) k/uL MPV Neutrophils % % Lymphocytes % % Monocytes % % Eosinophils % % Basophils % % Neutrophils # (1.3-7.7) k/uL Lymphocytes # (1.0-4.8) k/uL Monocytes # (0-1.0) k/uL Eosinophils # (0-0.7) k/uL Basophils # (0-0.2) k/uL PT 11.1 (10.0-12.5) sec INR 1.0 (<1.2) APTT 24.0 (22.0-30.0) sec Sodium 137 (137-145) mmol/L Potassium 3.3 L (3.5-5.1) mmol/L Chloride 105 (98-107) mmol/L Carbon Dioxide 26 (22-30) mmol/L Anion Gap 6 mmol/L BUN 21 H (7-17) mg/dL Creatinine 1.01 (0.52-1.04) mg/dL Est GFR (CKD-EPI)AfAm 61 (>60 ml/min/1.73 sqM) Est GFR (CKD-EPI)NonAf 53 (>60 ml/min/1.73 sqM) Glucose 92 (74-99) mg/dL Plasma Lactic Acid Singh 1.4 (0.7-2.0) mmol/L Calcium 9.3 (8.4-10.2) mg/dL Magnesium 1.7 (1.6-2.3) mg/dL Total Bilirubin 0.6 (0.2-1.3) mg/dL AST 20 (14-36) U/L ALT 10 (4-34) U/L Alkaline Phosphatase 75 (38-126) U/L Total Protein 6.1 L (6.3-8.2) g/dL Albumin 3.6 (3.5-5.0) g/dL Lipase 91 (23-300) U/L Blood Type Blood Type Confirm Blood Type Recheck Bld Type Recheck Status Antibody Screen Spec Expiration Date 01/18/24 Range/Units 09:57 WBC (3.8-10.6) k/uL RBC (3.80-5.40) m/uL Hgb (11.4-16.0) gm/dL Hct (34.0-46.0) % MCV (80.0-100.0) fL MCH (25.0-35.0) pg MCHC (31.0-37.0) g/dL RDW (11.5-15.5) % Plt Count (150-450) k/uL MPV Neutrophils % % Lymphocytes % % Monocytes % % Eosinophils % % Basophils % % Neutrophils # (1.3-7.7) k/uL Lymphocytes # (1.0-4.8) k/uL Monocytes # (0-1.0) k/uL Eosinophils # (0-0.7) k/uL Basophils # (0-0.2) k/uL PT (10.0-12.5) sec INR (<1.2) APTT (22.0-30.0) sec Sodium (137-145) mmol/L Potassium (3.5-5.1) mmol/L Chloride (98-107) mmol/L Carbon Dioxide (22-30) mmol/L Anion Gap mmol/L BUN (7-17) mg/dL Creatinine (0.52-1.04) mg/dL Est GFR (CKD-EPI)AfAm (>60 ml/min/1.73 sqM) Est GFR (CKD-EPI)NonAf (>60 ml/min/1.73 sqM) Glucose (74-99) mg/dL Plasma Lactic Acid Singh (0.7-2.0) mmol/L Calcium (8.4-10.2) mg/dL Magnesium (1.6-2.3) mg/dL Total Bilirubin (0.2-1.3) mg/dL AST (14-36) U/L ALT (4-34) U/L Alkaline Phosphatase (38-126) U/L Total Protein (6.3-8.2) g/dL Albumin (3.5-5.0) g/dL Lipase (23-300) U/L Blood Type Blood Type Confirm Blood Type Recheck No Previous Record Bld Type Recheck Status CABO Indicated Antibody Screen Spec Expiration Date 01/21/2024 9326 - Radiology Data Radiology results: report reviewed, image reviewed Disposition Clinical Impression: Colitis, Rectal bleeding Disposition: HOME SELF-CARE Instructions (If sedation given, give patient instructions): Rectal Bleeding (ED), Colitis (ED) Additional Instructions: Return to the emergency department with any new, worsening, or concerning symptoms. Take the antibiotic as prescribed for 10 days. Take the Zofran up to every 8 hours as needed for nausea and vomiting. Follow up with your primary care provider in 1-2 days. Prescriptions: Amoxic-Pot Clav 875-125Mg [Augmentin 875-125] 1 tab PO Q12HR 10 Days #20 tab Amoxic-Pot Clav 875-125Mg [Augmentin 875-125] 1 tab PO Q12HR 10 Days #20 tab Ondansetron Odt [Zofran Odt] 4 mg PO Q8HR PRN #20 tab PRN Reason: Nausea And Vomiting Ondansetron Odt [Zofran Odt] 4 mg PO Q8HR PRN #20 tab PRN Reason: Nausea And Vomiting Is patient prescribed a controlled substance at d/c from ED?: No Referrals: Franc Mays MD [Primary Care Provider] - 1-2 days Time of Disposition: 12:18
[2024-01-18 10:05] LABS: Basophils % (A) 0 %; Eosinophils # (A) 0.1 k/uL (0-0.7); Eosinophils % (A) 1 %; HCT 41.1 % (34.0-46.0); HGB 13.6 gm/dL (11.4-16.0); Lymphocytes # (A) 1.1 k/uL (1.0-4.8); Lymphocytes % (A) 9 %; MCH 31.3 pg (25.0-35.0); MCV 94.8 fL (80.0-100.0); Mean Platelet Volume 7.2; Monocytes # (A) 0.9 k/uL (0-1.0); Monocytes % (A) 7 %; Neutrophils # (A) 9.3 k/uL (1.3-7.7); Neutrophils % (A) 81 %; Platelet Count 339 k/uL (150-450); RBC 4.33 m/uL (3.80-5.40); RDW 12.7 % (11.5-15.5); WBC 11.5 k/uL (3.8-10.6)
[2024-01-18 10:22] LABS: Prothrombin Time 11.1 sec (10.0-12.5)
[2024-01-18 10:41] LABS: ALT 10 U/L (4-34); AST 20 U/L (14-36); African American GFR (CKD) 61 (>60 ml/min/1.73 sqM); Albumin 3.6 g/dL (3.5-5.0); Alkaline Phosphatase 75 U/L (38-126); Anion Gap 6 mmol/L; Blood Urea Nitrogen 21 mg/dL (7-17); Calcium 9.3 mg/dL (8.4-10.2); Carbon Dioxide 26 mmol/L (22-30); Chloride 105 mmol/L (98-107); Glucose 92 mg/dL (74-99); Lipase 91 U/L (23-300); Magnesium 1.7 mg/dL (1.6-2.3); Non-African American GFR(CKD) 53 (>60 ml/min/1.73 sqM); Potassium 3.3 mmol/L (3.5-5.1); Sodium 137 mmol/L (137-145); Total Bilirubin 0.6 mg/dL (0.2-1.3); Total Protein 6.1 g/dL (6.3-8.2)
[2024-01-18] MEDS: SODIUM CHLORIDE 0.9% 500 ML 500 ML IV ONE (11:29)
--- NOTE | 2024-01-18 11:57 | CT ---
CTA abdomen and pelvis with contrast. HISTORY: Lower quadrant pain and rectal bleeding. COMPARISON: CT abdomen and pelvis dated 08/26/2019. Technique: Multiple axial images are obtained through the abdomen and pelvis following the uneventful administration of nonionic IV contrast. The exam was performed according to the department CTA esthela col. FINDINGS: The visualized lung bases are clear. There is a 1 cm calcified granuloma in the left lower lobe. On the precontrast images there is no gallstone or renal calcification. There is no focal mass or organomegaly involving liver, pancreas, spleen or adrenal glands. There is no solid renal mass or hydronephrosis. The caliber of the abdominal aorta is is normal and there is no aneurysm or dissection. There is mild to moderate scattered arteriosclerotic calcifications. The origins of the celiac and mesenteric quynh ban and renal arteries are widely patent. There is no evidence of acute bleeding within the colon. There is moderate diverticulosis without CT evidence of diverticulitis. There is diffuse wall thickening with edema in the descending and proxima l sigmoid colon and within the cecum and ascending colon consistent with acute colitis or ischemic co litis. No bowel obstruction. No free intraperitoneal air or fluid. No pelvic mass, free fluid, abscess or adenopathy. The osseous structures are intact. IMPRESSION: 1. The descending colon, proximal sigmoid colon, cecum and ascending colon wall is edematous consiste nt with acute colitis or ischemic colitis. 2. Moderate scattered arteriosclerotic calcification abdominal aorta without evidence of aneurysm or dissection. 3. No evidence of acute bleed within the colon. [facility], , 01/18/2024 11:54 AM
[2024-01-18] MEDS: POTASSIUM CHLORIDE ER 20 MEQ TAB.ER PO STA (12:47)
[2024-01-18] MEDS: ACETAMINOPHEN TAB 500 MG TAB PO STA (12:48)
[2024-01-18] MEDS: ONDANSETRON 4 MG ODT STARTER PACK 2 TAB BTL PO STA (12:48)
[2024-01-18] MEDS: MORPHINE SULFATE 2 MG/ML SYRINGE IVP STA (12:48)
[2024-01-18] MEDS: ACET/COD 300 MG/30 MG STARTER PACK 6 TAB BTL PO STA (12:48)
[2024-01-18 13:07] VITALS: BP 155/76; PULSE 74
== END 2024-01-18 13:07 | disposition home or self-care (01) ==
LOC: EC 09:04
DX: K52.9 Noninfective gastroenteritis and colitis, unspecified (principal); Z87.891 Personal history of nicotine dependence
CPT/HCPCS: 36415; 86900; 86901; 80053; 83605; 83690; 83735; 85025; 85610; 85730; 86850; 74174; 99285; 96374; 96361; J2270; S0119; Q9967